=== PATIENT | female | born 1965 | race Caucasian/White ===

== ENCOUNTER 2021-09-07 21:46 | Emergency (ER) | payer OTHER ==
[2021-09-08] MEDS ORDERED: Acetaminophen/HYDROcodone 325-5 MG Tab PO ONE (00:25)
[2021-09-08] MEDS ORDERED: Orphenadrine 100 MG Tab.ER PO STA (00:25)
== END 2021-09-08 01:05 | disposition home or self-care (01) ==
LOC: JD.ED 21:46
DX: M54.16 Radiculopathy, lumbar region (principal); E66.9 Obesity, unspecified; Z68.44 Body mass index [BMI] 60.0-69.9, adult; Z91.040 Latex allergy status; Z79.899 Other long term (current) drug therapy
CPT/HCPCS: 72100; 99283; A9270